=== PATIENT | male | born 1985 ===

== ENCOUNTER 2021-12-27 15:50 | Emergency (ER) | payer OTHER ==
[~2021-12-27] VITALS: Ht 182.9 cm; Wt 103.0 kg
[2021-12-27] MEDS ORDERED: NS IV 1000 ML 1,000 ML IV STA (16:10)
--- NOTE | 2021-12-27 16:10 | ED Syncope ---
General Chief Complaint: Dizziness/Syncope Stated Complaint: SYNCOPE Source of Information: Patient, EMS Exam Limitations: No Limitations History of Present Illness Date Seen by Provider: Dec 27, 2021 Time Seen by Provider: 15:59 Initial Comments 36-year-old male with past medical history of factor V Leiden and previous PE no longer on anticoagulation coming in via EMS from urgent care due to a syncopal episode. 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 Had a syncopal episode where he went to the ground slowly assisted by his boss. He has had a headache events prior to this which is not unusual for him. Has some mild chest discomfort and mild shortness of breath. Denies any weakness, numbness, or any other concerns. He states he feels slightly dehydrated and has been working very hard. Allergies and Home Medications Allergies Coded Allergies: No Known Drug Allergies (Unverified , 12/27/21) Patient Home Medication List Home Medication List Reviewed: Yes Review of Systems Constitutional: No fever EENTM: no symptoms reported Respiratory: short of breath Cardiovascular: chest pain, syncope Gastrointestinal: no symptoms reported Genitourinary: no symptoms reported Musculoskeletal: no symptoms reported Skin: no symptoms reported Psychiatric/Neurological: No Symptoms Reported All Other Systems Reviewed Negative Unless Noted: Yes Past Aeizupi-Isdfxp-Ibqnbt Hx Patient Social History Tobacco Use?: No Smokeless Tobacco Frequency: Current Everyday User Past Medical History Surgeries: Yes Appendectomy, Orthopedic Physical Exam Vital Signs Vital Signs - First Documented 12/27/21 15:50 Temp 36.3 Pulse 81 Resp 22 B/P (MAP) 143/98 (113) Pulse Ox 98 O2 Delivery Room Air Capillary Refill : Height, Weight, BMI Height: '" Weight: lbs. oz. kg; BMI Method: General Appearance: No Apparent Distress, WD/WN HEENT: PERRL/EOMI, Normal ENT Inspection, Pharynx Normal Neck: Full Range of Motion, Normal Inspection, Non Tender, Supple Cardiovascular: Regular Rate, Rhythm, No Edema, Normal Peripheral Pulses Respiratory: Chest Non Tender, Lungs Clear, Normal Breath Sounds, No Accessory Muscle Use, No Respiratory Distress Gastrointestinal: Normal Bowel Sounds, Non Tender, Soft; No Distended, No Guarding Back: Normal Inspection, No CVA Tenderness, No Vertebral Tenderness Extremities: Normal Capillary Refill, Normal Inspection, Normal Range of Motion, Non Tender, No Calf Tenderness, No Pedal Edema Neurologic/Psychiatric: Alert, Oriented x3, No Motor/Sensory Deficits, Normal Mood/Affect, 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 Norm as Tested Cranial Nerves: Normal Hearing, Normal Speech, PERRL Coordination/Gait: Normal Finger to Nose, Normal Gait Motor/Sensory: No Motor Deficit, No Sensory Deficit, No Pronator Drift Skin: Normal Color, Warm/Dry Lymphatic: No Adenopathy Progress/Results/Core Measures Results/Orders Lab Results Laboratory Tests Test 12/27/21 15:56 Range/Units White Blood Count 8.8 4.3-11.0 10^3/uL Red Blood Count 5.20 4.30-5.52 10^6/uL Hemoglobin 15.4 13.3-17.7 g/dL Hematocrit 45 40-54 % Mean Corpuscular Volume 87 80-99 fL Mean Corpuscular Hemoglobin 30 25-34 pg Mean Corpuscular Hemoglobin Concent 34 32-36 g/dL Red Cell Distribution Width 13.5 10.0-14.5 % Platelet Count 331 130-400 10^3/uL Mean Platelet Volume 10.0 9.0-12.2 fL Immature Granulocyte % (Auto) 0 % Neutrophils (%) (Auto) 58 42-75 % Lymphocytes (%) (Auto) 31 12-44 % Monocytes (%) (Auto) 9 0-12 % Eosinophils (%) (Auto) 2 0-10 % Basophils (%) (Auto) 1 0-10 % Neutrophils # (Auto) 5.1 1.8-7.8 10^3/uL Lymphocytes # (Auto) 2.7 1.0-4.0 10^3/uL Monocytes # (Auto) 0.8 0.0-1.0 10^3/uL Eosinophils # (Auto) 0.2 0.0-0.3 10^3/uL Basophils # (Auto) 0.0 0.0-0.1 10^3/uL Immature Granulocyte # (Auto) 0.0 0.0-0.1 10^3/uL Prothrombin Time 13.3 12.2-14.7 SEC INR Comment 1.0 0.8-1.4 Activated Partial Thromboplast Time 26 24-35 SEC D-Dimer <= 0.27 0.00-0.49 UG/ML Sodium Level 139 135-145 MMOL/L Potassium Level 3.9 3.6-5.0 MMOL/L Chloride Level 106 98-107 MMOL/L Carbon Dioxide Level 22 21-32 MMOL/L Anion Gap 11 5-14 MMOL/L Blood Urea Nitrogen 9 7-18 MG/DL Creatinine 0.95 0.60-1.30 MG/DL Estimat Glomerular Filtration Rate 108 BUN/Creatinine Ratio 9 Glucose Level 92 70-105 MG/DL Calcium Level 8.9 8.5-10.1 MG/DL Corrected Calcium 9.0 8.5-10.1 MG/DL Magnesium Level 2.2 1.6-2.4 MG/DL Total Bilirubin 0.4 0.1-1.0 MG/DL Alkaline Phosphatase 55 40-136 U/L Troponin I < 0.028 <0.028 NG/ML B-Type Natriuretic Peptide < 10.0 <100.0 PG/ML Total Protein 6.5 6.4-8.2 GM/DL Albumin 3.9 3.2-4.5 GM/DL Lipase 34 8-78 U/L My Orders Orders - HUMZA BLAKEYL MD Ekg Tracing (12/27/21 15:54) Ct Head Wo (12/27/21 16:10) Ed Iv/Invasive Line Start (12/27/21 16:10) Chest 1 View, Ap/Pa Only (12/27/21 16:10) Bnp Joselito (12/27/21 16:10) Cbc With Automated Diff (12/27/21 16:10) Comprehensive Metabolic Panel (12/27/21 16:10) Fibrin Degradation Products (12/27/21 16:10) Lipase (12/27/21 16:10) Magnesium (12/27/21 16:10) Protime With Inr (12/27/21 16:10) Partial Thromboplastin Time (12/27/21 16:10) Troponin I Joselito (12/27/21 16:10) Ekg Tracing (12/27/21 16:10) Monitor-Rhythm Ecg Trace Only (12/27/21 16:10) Orthostatic Vital Signs (Adult (12/27/21 16:10) Prochlorperazine Injection (Compazine In (12/27/21 16:15) Diphenhydramine Injection (Benadryl Inje (12/27/21 16:15) Ns Iv 1000 Ml (Sodium Chloride 0.9%) (12/27/21 16:10) Medications Given in ED Current Medications Medications Dose Ordered Sig/Carmelo Route Start Time Stop Time Status Last Admin Dose Admin Diphenhydramine HCl 25 mg ONCE ONCE IVP 12/27/21 16:15 12/27/21 16:16 DC 12/27/21 16:23 25 MG Prochlorperazine Edisylate 10 mg ONCE ONCE IV 12/27/21 16:15 12/27/21 16:16 DC 12/27/21 16:23 10 MG Vital Signs/I&O 12/27/21 12/27/21 15:50 16:18 Temp 36.3 Pulse 81 82 80 81 Resp 22 B/P (MAP) 143/98 (113) 123/82 (96) 132/105 (114) 140/97 (111) Pulse Ox 98 O2 Delivery Room Air Progress Progress Note : Progress Note 36-year-old male with above history coming in after syncopal episode. ABCs were intact and vitals were stable on presentation. Physical exam reassuring with no focal abnormalities including a normal comprehensive neuro exam. EKG with no acute ischemic changes, no delta wave, normal QTC. CT head with no acute changes and chest x-ray with no acute findings. Troponin negative, D-dimer undetectable, labs otherwise essentially unremarkable. The patient was overheard on the phone talking to a friend saying he believes he got very scared and had a panic attack due to the height of the wind turbine. He has no signs of trauma, and did not really have any type of fall. I believe he stable for discharge with outpatient follow-up. He was sent home with strict return precautions. Initial ECG Impression Date: Dec 27, 2021 Initial ECG Impression Time: 16:02 Initial ECG Rate: 76 Initial ECG Rhythm: Normal Sinus Comment Narrow QRS, normal axis, no significant ST changes or T wave abnormalities. Diagnostic Imaging Diagonstic Imaging: Xray (chest), CT (head) Comments [facility] [place], [place] NAME: ANGELO GRAY [facility] REC#: [id number] PT STATUS: REG ER : 1985 PHYSICIAN: HUMZA BLAKELY MD ADMIT DATE: 12/27/21/ER Draft Date of Exam:12/27/21 CHEST 1 VIEW, AP/PA ONLY CLINICAL INDICATION: Patient with chest pain and syncope. EXAM: Portable chest x-ray, upright view. COMPARISON: None. FINDINGS: Lungs/pleura: Lungs are clear. There is no pneumothorax. There is no pleural effusion. Mediastinum: Unremarkable. Pulmonary vasculature: Unremarkable. Heart: Unremarkable. Bones/extrathoracic soft tissue: Unremarkable. IMPRESSION: There is no radiographic evidence of acute cardiopulmonary process. Dictated on workstation # [id number] Dict: 12/27/21 1636 Trans: 12/27/21 163 MK [id number] Interpreted by: DENISE ABREU MD Electronically signed by: [facility]. [place], [place] NAME: ANGELO GRAY REC#: [id number] PT STATUS: REG ER : 1985 PHYSICIAN: HUMZA BLAKELY MD ADMIT DATE: 12/27/21/ER Draft Date of Exam:12/27/21 CT HEAD WO Clinical Indication: Patient with chest pain and syncope. Exam: Axial CT scan of the brain without IV contrast with coronal and sagittal reformatted images. Auto Exposure Controls were utilized during the CT exam to meet ALARA standards for radiation dose reduction. Comparison: None Findings: There is no evidence of acute cerebral infarct, intracranial hemorrhage, or gross mass effect. The brain parenchymal volume appears appropriate for patient's age. There is normal martini-white matter distinction. There is no significant midline shift or herniation. There is no evidence of hydrocephalus. The basal cisterns are unremarkable. The skull, extracranial soft tissue, and orbits are unremarkable. The paranasal sinuses are unremarkable. Temporal bones show no significant abnormality. Impression: Unremarkable CT scan of the brain. Dictated on workstation # [id number] Dict: 12/27/21 163 Trans: 12/27/21 1642 CVB [id number] Interpreted by: DENISE ABREU MD Electronically signed by: Departure Impression Primary Impression: Syncope Qualified Codes: R55 - Syncope and collapse Disposition: HOME, SELF-CARE Condition: Stable Departure-Patient Inst. Decision time for Depature: 16:47 Referrals: [facility],LOCAL PHYSICIAN (PCP) Primary Care Physician Patient Instructions: Syncope (Fainting) (DC) Add. Discharge Instructions: It does not appear like this is a blood clot or anything more serious. Please do follow-up with your regular doctor or if you do not have 1 and you are going to be in town for quite some time, you can follow-up with [facility] here who is numbers in this paperwork. He have any chest pain that is worsening or concerning then please come back to the ER. Work/School Note: Work Release Form Date Seen in the Emergency Department: Dec 27, 2021 Return to Work: Dec 28, 2021 Restrictions: No Restrictions HUMZA BLAKELY MD Dec 27, 2021 16:10
[2021-12-27] MEDS ORDERED: diphenhydrAMINE 50 MG/ML INJ (BENADRYL) IVP ONE (16:15)
[2021-12-27] MEDS ORDERED: PROCHLORPERAZINE 10 MG/2ML INJ (COMPAZINE) IV ONE (16:15)
[2021-12-27 16:18] VITALS: BP_SYST 123; BP_SYST 132; BP_SYST 140; BP_DIAS 105; BP_DIAS 82; BP_DIAS 97
[2021-12-27 16:21] LABS: BASOPHILS % (AUTO) 1 % (0-10); EOSINOPHILS # (AUTO) 0.2 10^3/uL (0.0-0.3); EOSINOPHILS % (AUTO) 2 % (0-10); HEMATOCRIT 45 % (40-54); HEMOGLOBIN 15.4 g/dL (13.3-17.7); LYMPHOCYTES # (AUTO) 2.7 10^3/uL (1.0-4.0); LYMPHOCYTES % (AUTO) 31 % (12-44); MEAN CORPUSCULAR HEMOGLOBIN 30 pg (25-34); MEAN CORPUSCULAR HGB CONC 34 g/dL (32-36); MEAN CORPUSCULAR VOLUME 87 fL (80-99); MONOCYTES # (AUTO) 0.8 10^3/uL (0.0-1.0); MONOCYTES % (AUTO) 9 % (0-12); NEUTROPHILS # (AUTO) 5.1 10^3/uL (1.8-7.8); NEUTROPHILS % (AUTO) 58 % (42-75); PLATELET COUNT 331 10^3/uL (130-400); WHITE BLOOD COUNT 8.8 10^3/uL (4.3-11.0)
[2021-12-27 16:23] LABS: ALBUMIN 3.9 GM/DL (3.2-4.5); CHLORIDE 106 MMOL/L (98-107)
[2021-12-27 16:24] LABS: POTASSIUM 3.9 MMOL/L (3.6-5.0); SODIUM 139 MMOL/L (135-145)
[2021-12-27 16:25] LABS: CALCIUM 8.9 MG/DL (8.5-10.1)
[2021-12-27 16:26] LABS: GLUCOSE 92 MG/DL (70-105); TOTAL PROTEIN 6.5 GM/DL (6.4-8.2)
[2021-12-27 16:27] LABS: CARBON DIOXIDE 22 MMOL/L (21-32)
[2021-12-27 16:28] LABS: BILIRUBIN,TOTAL 0.4 MG/DL (0.1-1.0)
[2021-12-27 16:29] LABS: ALKALINE PHOSPHATASE 55 U/L (40-136); CREATININE SERUM 0.95 MG/DL (0.60-1.30); GFR ESTIMATED 108
[2021-12-27 16:30] LABS: BUN/CREATININE RATIO 9
[2021-12-27 16:32] LABS: FIBRIN DEGRADATION PRODUCTS <= 0.27 UG/ML (0.00-0.49); MAGNESIUM 2.2 MG/DL (1.6-2.4); PARTIAL THROMBOPLASTIN TIME 26 SEC (24-35); PROTHROMBIN TIME PATIENT 13.3 SEC (12.2-14.7)
[2021-12-27 16:33] LABS: LIPASE 34 U/L (8-78)
--- NOTE | 2021-12-27 16:38 | Diagnostic Imaging Report ---
CLINICAL INDICATION: Patient with chest pain and syncope. EXAM: Portable chest x-ray, upright view. COMPARISON: None. FINDINGS: Lungs/pleura: Lungs are clear. There is no pneumothorax. There is no pleural effusion. Mediastinum: Unremarkable. Pulmonary vasculature: Unremarkable. Heart: Unremarkable. Bones/extrathoracic soft tissue: Unremarkable. IMPRESSION: There is no radiographic evidence of acute cardiopulmonary process. Dictated by: Dictated on workstation # [id number]
--- NOTE | 2021-12-27 16:42 | Diagnostic Imaging Report ---
Clinical Indication: Patient with chest pain and syncope. Exam: Axial CT scan of the brain without IV contrast with coronal and sagittal reformatted images. Auto Exposure Controls were utilized during the CT exam to meet ALARA standards for radiation dose reduction. Comparison: None Findings: There is no evidence of acute cerebral infarct, intracranial hemorrhage, or gross mass effect. The brain parenchymal volume appears appropriate for patient's age. There is normal martini-white matter distinction. There is no significant midline shift or herniation. There is no evidence of hydrocephalus. The basal cisterns are unremarkable. The skull, extracranial soft tissue, and orbits are unremarkable. The paranasal sinuses are unremarkable. Temporal bones show no significant abnormality. Impression: Unremarkable CT scan of the brain. Dictated by: Dictated on workstation # [id number]
[2021-12-27 16:55] VITALS: BP 150/84
[2021-12-27 16:58] LABS: ALANINE AMINOTRANSFERASE 35 U/L (0-55)
== END 2021-12-27 16:56 | disposition home or self-care (01) ==
LOC: ER 15:56
DX: R55 Syncope and collapse (principal); R07.89 Other chest pain; F17.200 Nicotine dependence, unspecified, uncomplicated
CPT/HCPCS: 36415; 70450; 71045; 80053; 83690; 83735; 83880; 84484; 85025; 85379; 85610; 85730; 93005; 93041